=== PATIENT | male | born 1980 | race Caucasian/White ===

== ENCOUNTER 2017-12-09 05:22 | Emergency (ER) | payer MEDICAID, SELFPAY ==
[2017-12-09 05:24] VITALS: BP 156/106; PULSE 88; RESP 20; TEMP 36.6; O2SAT 96; BMI 34.7
--- NOTE | 2017-12-09 05:25 | NURSING ---
CALLED FOR EKG PER RN REQUEST, NO OLD EKG'S IN MUSE
--- NOTE | 2017-12-09 05:36 | RAD_ITS ---
STUDY: X-RAY CHEST REASON FOR EXAM: Male, 37 years old. Left-sided chest pain TECHNIQUE: Single frontal view of the chest. COMPARISON: 10/05/2015 FINDINGS: The lungs are clear and expanded. There is no demonstrated pleural abnormality. Normal size heart. Normal mediastinum and selena. Normal visualized pulmonary arteries. Normal visualized aortic arch and descending thoracic aorta. Normal visualized thoracic spine. Normal visualized ribs, clavicles, and shoulders. There is no demonstrated abnormality of the visualized soft tissue structures of the upper abdomen. RAD/Chest 1 View (Portable) IMPRESSION: Normal x-ray examination of the chest. Electronically Signed: Chuck Hale MD at 5:59 EDT Tel , Service support ,
--- NOTE | 2017-12-09 05:36 | EKG12_ITS ---
Test Reason : CP Blood Pressure : / mmHG Vent. Rate : 087 BPM Atrial Rate : 087 BPM P-R Int : 162 ms QRS Dur : 084 ms QT Int : 376 ms P-R-T Axes : 062 047 057 degrees QTc Int : 452 ms Normal sinus rhythm Normal ECG Confirmed by GENA JEAN BAPTISTE, TAN ([id number]), online editor AZRA RAMIREZ ([id number]) on 12/11/2017 8:54:18 AM Referred By: OMID Confirmed By:TAN AVERY MD
[2017-12-09 05:47] LABS: Absolute Lymphocyte Count 3.33 X10^3/ul (0.83-4.51); Absolute Neutrophil Count 4.7 X10^3/uL (2.0-7.7); Basophil# 0.04 X10^3/uL; Basophil% 0.4 % (0-1); Eosinophil# 0.63 X10^3/uL; Eosinophils% 6.6 % (0-5); Hematocrit 49.1 % (40-54); Lymphocyte # 3.33 X10^3/ul (4.0); Lymphocyte % 35.1 % (19-41); Mean Corp Hgb Conc 32.6 g/gl (32-36); Mean Corpuscular Volume 95.2 fL (80-94); Mean Platelet Vol. 9.6 fl (6.2-12.0); Monocyte# 0.74 X10^3/uL; Monocyte% 7.8 % (0-10); Neutrophil # 4.73 X10^3/uL (2.7-7.7); Platelet Count 306 K/mm3 (150-450); RBC Distribution Width CV 13.5 % (11.6-14.6); RBC Distribution Width SD 46.7 fl (35.1-43.9); Red Blood Count 5.16 M/mm3 (4.6-6.2); White Blood Count 9.5 K/mm3 (4.4-11.0)
[2017-12-09] MEDS: 0.9% Normal Saline 1,000 ML 1000 ML IV (05:50)
[2017-12-09 05:52] LABS: POSITIVE COUNT NO; POSITIVE DIFFERENTIAL NO; POSITIVE MORPHOLOGY NO
--- NOTE | 2017-12-09 06:04 | ED.DCSUM_ITS ---
- ER Visit Summary Date of Service: 12/09/17 Chief Complaint: Chest pain History of Present Illness: The patient is a 37 M with no primary care physician. He reports she has chest pain that began 4:00 this morning while undergoing light activity. It is a dull, aching pain that is 4 out of 10 at worst and 2 out of 10 currently. Is worsened by coughing. It is unchanged with exertion or breathing. Is relieved by nothing. He denies any associated nausea, vomiting, diaphoresis, or shortness of breath. No personal family history of DVT. No recent travel. No ankle swelling or calf pain. Physical Examination: Vitals: Stable. Afebrile. General: Well-nourished and well-developed. Head: Normocephalic atraumatic. Neck: Supple, no lymphadenopathy. No JVD. Nontender. Cardiovascular: Regular rate and rhythm. No murmurs. Respiratory: No respiratory distress. Clear to auscultation bilaterally. Abdominal: Soft, nontender, nondistended, normal bowel sounds. No guarding, rebound, or peritoneal signs. Back: Nontender. Extremities: Nontender, no edema. Skin: Normal color, no rash. Neurologic: Alert and oriented ?3. Cranial nerves II through XII are intact. Normal strength and sensation. Psych: Normal affect. Test Results: EKG is sinus at 87 with no acute changes. CBC is remarkable for eosinophils of 7. Chest x-ray is normal. Chem-7 is marked for chloride 108. Troponin is negative. D-dimer is negative. Emergency Department Course and Treatment: Patient is resting comfortably and refused pain medications. Treatment Plan: Patient will be discharged instructions to follow-up the [facility] in 1-2 days if not improving. Return to the emergency department for any worsening symptoms. Disposition: To home in improved and stable condition. Impression: 1. Atypical chest pain. 2. DILAN score of 0. This note was generated with [employer] dictation software. It may contain incorrect words, spelling, and punctuation that were not noted in review of the chart prior to signing ED Disposition - Plan for ED Patient: Chief Complaint: Chest Pain Instructions: ED Chest Pain Atypical Unkn Cause Referrals: Renee Fiore [NON-STAFF] - 1-2 Days if not improving
[2017-12-09 06:14] LABS: Anion Gap 6 (5-15); BUN 17 mg/dL (7-18); BUN/Creat Ratio 19.2 RATIO (10-20); Calcium,Total 8.5 mg/dL (8.5-10.1); Chloride 108 mmol/L (98-107); Creatinine, Serum 0.89 mg/dL (0.70-1.30); EST Glomerular Filtration Rate 102 mL/min (>60); Est Glom Filt Rate - Afr Amer 124 mL/min (>60); Estimated Creatinine Clearance 117.34 ml/min; Glucose 95 mg/dL (74-106); Potassium 4.3 mmol/L (3.5-5.1); Sodium Level 140 mmol/L (136-145)
[2017-12-09 06:39] LABS: D-Dimer Quantitative (DVT/PE) < 0.27 FEU/ug/m (0.27-0.49)
[2017-12-09 06:48] VITALS: BP 150/90; PULSE 69; RESP 17; O2SAT 97
== END 2017-12-09 06:53 | disposition home or self-care (01) ==
PROVIDERS: Emergency Provider Emergency Medicine
DX: R07.89 Other chest pain (principal); Z72.0 Tobacco use
CPT/HCPCS: 71045; 80048; 84484; 85025; 85379; 93005; 96360; 99284; A4216

== ENCOUNTER 2018-08-16 07:50 | Emergency (ER) | payer MEDICAID, SELFPAY ==
[2018-08-16 07:51] VITALS: BP 146/89; PULSE 81; RESP 18; TEMP 36.6; O2SAT 99; BMI 33.0
--- NOTE | 2018-08-16 08:04 | ED.VISSUMM ---
- ER Visit Summary Date of Service: 08/16/18 Chief Complaint: Elbow pain History of Present Illness: The patient is a 38 M who is right-hand dominant. He was arm wrestling yesterday after work and he felt something pop in the medial aspect of his right elbow. He complains of pain to that area as well as bruising and swelling. He can flex his elbow, but it hurts to extend. No other injuries or complaints. Physical Examination: Inspection shows some bruising to the proximal and medial forearm with some mild edema. No obvious deformity. Skin intact. Range of motion is intact, but he does have some pain with extension, pronation, and supination. Tender to palpation diffusely through the elbow, worse on the medial aspect. Compartments are soft. Pulses strong and equal distally. Sensation intact. Strength intact, but limited by pain. Test Results: X-rays of the right elbow were ordered. Emergency Department Course and Treatment: Patient treated with an ice pack. Declined pain medicine. Will check x-rays. X-rays show medial side spurring. No fracture. Suspect a muscle strain or partial tear. Nothing to suggest fracture, compartment syndrome, or vascular injury. Patient will be treated with gentle range of motion exercises at home, rest, anti-inflammatories, ice. He was referred to Dr. Nava for follow-up as he was next on the referral list and the patient does not have a PCP. Treatment Plan: As above Disposition: Discharge Impression: 1. Right elbow strain This note was generated with [employer] dictation software. It may contain incorrect words, spelling, and punctuation that were not noted in review of the chart prior to signing ED Disposition - Plan for ED Patient: Chief Complaint: Upper Extremity Injury Referrals: Care Physician,No Primary [Primary Care Provider] -
--- NOTE | 2018-08-16 08:30 | RAD_ITS ---
STUDY: X-RAY - RIGHT ELBOW REASON FOR EXAM: Male, 38 years old. Trauma. TECHNIQUE: 3 view(s) of the elbow. COMPARISON: None. FINDINGS: Normal visualized radius and ulna. There is medial epicondylar spurring. Normal radiocapitellar and ulnotrochlear articulations. The soft tissue structures are unremarkable. There is no demonstrated fracture. RAD/Elbow min 3 Views IMPRESSION: Medial epicondylar spurring. Electronically Signed: Mason Blanco MD at 9:01 EST , Service support ,
--- NOTE | 2018-08-16 09:09 | ED.DEP ---
ED Disposition - Plan for ED Patient: Chief Complaint: Upper Extremity Injury Instructions: ED Sprain Elbow Prescriptions: Naproxen [Naprosyn] 500 mg PO BID PRN #20 tab Referrals: Narinder Nava DO [STAFF PHYSICIAN] -
[2018-08-16] MEDS: Naproxen 500 MG Tablet PO (09:24)
[2018-08-16 09:25] VITALS: BP 135/78; PULSE 82; RESP 16; O2SAT 98
== END 2018-08-16 09:26 | disposition home or self-care (01) ==
PROVIDERS: Emergency Provider Emergency Medicine
DX: S56.911A Strain of unspecified muscles, fascia and tendons at forearm level, right arm, initial encounter (principal); Y93.72 Activity, wrestling; Y93.89 Activity, other specified; Y92.89 Other specified places as the place of occurrence of the external cause; Y99.8 Other external cause status
CPT/HCPCS: 73080; 99283

== ENCOUNTER 2019-11-04 08:45 | Emergency (ER) | payer MEDICAID, SELFPAY ==
[2019-11-04 08:46] VITALS: BP 138/70; PULSE 93; RESP 17; TEMP 36.5; O2SAT 93; BMI 33.0
[2019-11-04 08:59] VITALS: O2SAT 98
[2019-11-04 09:11] VITALS: BP 154/95; PULSE 73; RESP 16; TEMP 36.5; O2SAT 93
--- NOTE | 2019-11-04 09:16 | ED.VIS.FLU ---
History of Present Illness Chief Complaint: Cough Informant: Patient Onset: Weeks Context: Gradual Onset Timing: Continuous Quality: Wheezing Worsened by: Coughing Relieved by: Nothing Associated Symptoms: Cough, White sputum, - - nasal congestion. Negative for: Ear pain, Rhinorrhea, Sore throat Chest Pain: None Narrative: Patient is a 39-year-old male with history of tobacco use presenting with persistent cough. Patient states he had a cough for the past 3 weeks. It is especially bad at night when he tries to lay down. Sometimes he coughs so hard that he will have some chest discomfort and a headache. He currently does not have the symptoms. He has some associated nasal congestion. He has been to urgent care twice this month for the complaints and decided come to the emergency room as his cough is persisted. He denies any associated shortness of breath or difficulty breathing. He denies any fever or chills. He denies any GI or symptoms. At 3 weeks ago he was put on a prednisone burst and 1 week ago he was put on a Z-Ruslan. He is also been taking Mucinex for symptomatic relief. Patient was prescribed an albuterol inhaler but he is only using it once a day. He does not feel like it is providing any significant relief. He is also use some [id number] medications including NyQuil he denies any other complaints at this time. Patient states he is concerned he might have pneumonia. Past Medical History - Allergies and Home Meds Allergies/Adverse Reactions: Allergies amoxicillin Adverse Reaction (Verified 11/04/19 08:46) Rash Primary Care Physician: Pilo Clayton DO [NON CLINICAL AFFILIATE] - Past Medical History: None Surgical History: noncontributory Smoking Status: Current every day smoker Alcohol: None Drugs: None Review of Systems General: Denies: Chills, Fever, Sweats ENT: Reports: - - nasal congestion . Denies: Bilateral ear pain, Rhinorrhea, Sore throat Cardiovascular: Denies: Chest pain, Palpitations Respiratory: Reports: Cough, Sputum. Denies: Dyspnea, Dyspnea on exertion Gastrointestinal: Denies: Abdominal pain, Nausea, Vomiting, Diarrhea, Melena, Hematochezia Genitourinary: Denies: Dysuria, Hematuria, Frequency Skin: Denies: Rash Neurological: Denies: Headache, Weakness, Numbness Physical Exam Vital Signs/Narrative: Vital Signs Temp Pulse Resp BP Pulse Ox 11/04/19 09:11 97.7 F L 73 16 154/95 H 93 11/04/19 08:46 97.7 F L 93 17 138/70 H 93 Inital Vital Signs reviewed: Yes General: Well nourished, Well developed Head: Normocephalic, Atraumatic Eyes: Perrl, EOMI ENT: Moist mucous membranes, No rhinorrhea, TM's clear Neck: Supple, Nontender, No JVD Cardiovascular: Regular rate, Regular rhythm, No murmurs Respiratory: Wheezing - bilateral . Negative for: Rhonchi, Diminished, Decreased Air Movement, Retractions, Chest tenderness Abdomen: Soft, Nontender, Nondistended, Normal bowel sounds Back: Nontender, Normal Inspection Extremities: Nontender, No edema Skin: Normal color, No rash Neurological: Alert, Oriented x3, Cranial nerves II-XII grossly intact, Normal Strength, Normal Sensation Psychological: Normal affect Diagnostic/Tx/Re-eval Chest X-Ray - ED: 2 View, Read by ED Physician, Read by Radiologist, No Acute Disease - Medical Decision Making She is evaluated for 3 weeks of cough. He has no other symptom such as fever, chest pain or shortness of breath. He notes he is starting to get some discomfort because of the amount of cough and is having especially at night. He has been to urgent care twice but still has lingering symptoms. Clinically patient has a viral bronchitis. Chest x-ray does not show any acute infiltrate, pneumothorax or other acute process. Patient is counseled that this could be from COVID -19 but as he is healthy with normal vital signs we will not test him emergently in the ER. He is counseled on isolation precautions. Patient will be treated symptomatically with a course of steroids as he does have some wheezing as well as Robitussin-AC for his cough. Patient is counseled on signs and symptoms requiring return to the emergency room. Patient verbalizes agreement and understand this plan. Patient discharged home in stable and improved condition. ED Disposition - Plan for ED Patient: Disposition: Home or Assisted Living Diagnosis: Bronchitis Instructions: Acute Bronchitis, ED REACTIVE AIRWAY DISEASE Adult Prescriptions: Prednisone [Deltasone] 40 mg PO DAILY #10 tab Transmission Status: Received by [facility] Guaifenesin/Codeine [Robitussin AC] 10 ml PO Q6H PRN PRN 3 Days #120 udc PRN Reason: Cough Transmission Status: Received by [facility] Referrals: Pilo Clayton DO [NON CLINICAL AFFILIATE] -
--- NOTE | 2019-11-04 09:20 | RAD_ITS ---
STUDY: X-RAY CHEST REASON FOR EXAM: Male, 39 years old. COUGH, CONGESTION X 3 WEEKS TECHNIQUE: PA and lateral views of the chest. COMPARISON: Comparison is made with prior study dated December 09, 2017. FINDINGS: The lungs are clear and expanded. There is no demonstrated pleural abnormality. Normal size heart. Normal mediastinum and selena. Normal visualized pulmonary arteries. Normal visualized aortic arch and descending thoracic aorta. Normal visualized thoracic spine. Normal visualized ribs, clavicles, and shoulders. There is no demonstrated abnormality of the visualized soft tissue structures of the upper abdomen. RAD/Chest PA and Lateral IMPRESSION: Normal x-ray examination of the chest. Electronically Signed: Jelani Grover, at 9:36 EDT , Service support ,
[2019-11-04 10:41] VITALS: BP 134/77; PULSE 72; RESP 16; O2SAT 98
== END 2019-11-04 10:41 | disposition home or self-care (01) ==
PROVIDERS: Emergency Provider Emergency Medicine
DX: J40 Bronchitis, not specified as acute or chronic (principal); F17.200 Nicotine dependence, unspecified, uncomplicated
CPT/HCPCS: 71046; 99282

== ENCOUNTER 2020-01-12 06:17 | Emergency (ER) | payer MEDICAID, SELFPAY ==
[2020-01-12 06:19] VITALS: BP 132/79; PULSE 92; RESP 18; TEMP 36.3; O2SAT 97; BMI 34.1
--- NOTE | 2020-01-12 06:24 | RAD_ITS ---
STUDY: X-RAY - RIGHT ELBOW REASON FOR EXAM: Male, 39 years old. injured throwing a baseball yesterday -- c/o pain rt medial elbow TECHNIQUE: 3 view(s) of the elbow. COMPARISON: None. FINDINGS: Normal visualized humerus, radius and ulna. Normal radiocapitellar articulation. There is degenerative arthrosis of the ulnotrochlear articulation.. The soft tissue structures are unremarkable. RAD/Elbow min 3 Views IMPRESSION: Degenerative arthrosis. No demonstrated fracture, dislocation, or destructive osseous lesion. Electronically Signed: Ned Cuevas MD at 6:57 EDT , Service support ,
--- NOTE | 2020-01-12 06:25 | ED.DCSUM_ITS ---
History of Present Illness Chief Complaint: Upper Extremity Injury Detail of Chief Complaint: Right elbow pain Informant: Patient Onset: Yesterday Current Severity: Moderate Maximum Severity: Moderate Narrative: Patient presents with right elbow pain. He was throwing a baseball yesterday when he felt a pop in his elbow. He points the medial side of the joint. He is right-hand dominant. In August 2018 patient injured the same area of his elbow while arm wrestling. He states he was placed in a wrap by sports medicine. Past Medical History - Allergies and Home Meds Allergies/Adverse Reactions: Allergies amoxicillin Adverse Reaction (Verified 01/12/20 06:18) Rash Primary Care Physician: Care Physician,No Primary [Primary Care Provider] - Prior records reviewed: Yes Past Medical History: None Surgical History: noncontributory Lives: With Family Smoking Status: Current every day smoker Review of Systems General: Denies: Chills, Fever Eyes: Denies: Visual changes - bilaterally ENT: Denies: Bilateral ear pain Cardiovascular: Denies: Chest pain Respiratory: Denies: Dyspnea, Cough Gastrointestinal: Denies: Abdominal pain, Nausea, Vomiting, Diarrhea Genitourinary: Denies: Dysuria Musculoskeletal: Reports: Extremity Pain Neurological: Denies: Parasthesia Hematologic: Denies: Easy bruising, Easy bleeding Allergy: Denies: Uticaria Physical Exam Vital Signs/Narrative: Vital Signs Temp Pulse Resp BP Pulse Ox 01/12/20 06:19 97.4 F L 92 18 132/79 H 97 Inital Vital Signs reviewed: Yes General: Well nourished, Well developed Head: Normocephalic ENT: Moist mucous membranes Neck: Supple Cardiovascular: Regular rate, Regular rhythm Respiratory: No distress, CTA bilaterally Abdomen: Soft, Nontender Extremities: - - Tender to palpation on the medial joint line of the right elbow. Patient does have limited extension secondary to pain. Strong distal pulses are noted with good sensation. No tenderness at the shoulder. Patient has minimal right elbow pain with pronation and supination. Skin: Normal color Neurological: Alert, Oriented x3 Psychological: Normal affect Diagnostic/Tx/Re-eval Impressions Elbow X-Ray 01/12/20 06:24 IMPRESSION: Degenerative arthrosis. No demonstrated fracture, dislocation, or destructive osseous lesion. Electronically Signed: Ned Cuevas MD at 6:57 EDT , Service support , 01/12/20 06:24 Elbow min 3 Views [RAD] Stat - Medical Decision Making Patient was given naproxen for pain. X-rays do not show acute fracture. I did advise him that this will not show a ligament or tendon tear. Patient is given an Sharath wrap and sling. He has seen Dr. Nava in the past for this and will be referred to him again. He is given a work note for today and restrictions for the rest of the week. ED Disposition - Plan for ED Patient: Disposition: Home or Assisted Living Diagnosis: Sprain of right elbow Instructions: ED ELBOW SPRAIN Prescriptions: Naproxen [Naprosyn] 500 mg PO BID PRN PRN #20 tab PRN Reason: Pain Score 4-10/10 Transmission Status: Pending to [facility] Referrals: Narinder Nava DO [STAFF PHYSICIAN] - 3-5 Days if not improving
[2020-01-12] MEDS: Naproxen 500 MG Tablet PO (06:26)
== END 2020-01-12 07:21 | disposition home or self-care (01) ==
LOC: ED 07:15
PROVIDERS: Emergency Provider Emergency Medicine
DX: S53.401A Unspecified sprain of right elbow, initial encounter (principal); F17.200 Nicotine dependence, unspecified, uncomplicated; Y93.64 Activity, baseball
CPT/HCPCS: 73080; 99283

== ENCOUNTER 2020-03-17 06:55 | Emergency (ER) | payer MEDICAID, SELFPAY ==
[2020-03-17 06:56] VITALS: BP 155/83; PULSE 92; RESP 18; TEMP 36.9; O2SAT 97; BMI 32.6
--- NOTE | 2020-03-17 07:06 | RAD_ITS ---
STUDY: X-RAY - RIGHT ELBOW REASON FOR EXAM: Male, 40 years old. PAIN AFTER THROWING A BASEBALL -- H/O PREVIOUS ELBOW INJURIES TECHNIQUE: 3 view(s) of the elbow. COMPARISON: Comparison is made with prior study dated 01/12/2020. FINDINGS: There now is evidence of an avulsion fracture of the medial epicondyles of the distal humerus. Normal radiocapitellar and ulnotrochlear articulations. Soft tissue swelling. RAD/Elbow min 3 Views IMPRESSION: Avulsion fracture of the medial epicondyle of the distal humerus. Electronically Signed: Jelani Grover, at 7:28 EDT , Service support ,
--- NOTE | 2020-03-17 07:08 | ED.DCSUM_ITS ---
History of Present Illness Chief Complaint: Upper Extremity Injury Narrative: Patient presenting for evaluation due to a right elbow injury. Patient reports that he has had history of injuries to his right elbow in the past. 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 He reports a moderate amount of pain that is worse with palpation and movement. Patient denies any numbness or weakness. Patient reports that he has not been taking anything for this. He has not seen an orthopedist for this. He denies any other injuries at this time. Past Medical History - Allergies and Home Meds Allergies/Adverse Reactions: Allergies amoxicillin Adverse Reaction (Verified 03/17/20 07:00) Rash Primary Care Physician: Care Physician,No Primary [Primary Care Provider] - Past Medical History: None Surgical History: noncontributory Lives: With Family Smoking Status: Current every day smoker Drugs: None Review of Systems General: Denies: Fever Gastrointestinal: Denies: Nausea, Vomiting Musculoskeletal: Reports: Extremity Pain Skin: Denies: Rash Neurological: Denies: Weakness, Parasthesia Hematologic: Denies: Easy bruising, Easy bleeding Physical Exam Vital Signs/Narrative: Vital Signs Temp Pulse Resp BP Pulse Ox 03/17/20 06:56 98.5 F 92 18 155/83 H 97 Inital Vital Signs reviewed: Yes Right Elbow: - - Examination the patient's right upper extremity shows no pain or limited range of motion of the shoulder wrist or hand. 2+ radial pulses that are bilaterally symmetric. Normal sensation over all dermatomes. Examination of the elbow shows no outward signs of swelling or deformity. Normal active and passive range of motion, but there is pain with range of motion both with f lexion and extension pronation and supination. Pain on palpation mainly over the distribution of the medial condyle. General: Well nourished, Well developed Head: Normocephalic Eyes: EOMI ENT: No Trauma Neck: Full ROM Cardiovascular: Regular rate, Regular rhythm Respiratory: No distress Skin: Normal color, No rash Neurological: Alert, Oriented x3 Psychological: Normal affect Diagnostic/Tx/Re-eval Clinical Impression(s) from Imaging Studies Elbow X-Ray 03/17/20 07:06 IMPRESSION: Avulsion fracture of the medial epicondyle of the distal humerus. Electronically Signed: Jelani Grover, at 7:28 EDT , Service support , - Medical Decision Making Patient presented with an elbow injury. X-rays by my personal interpretation as well as radiology demonstrate a medial epicondyle avulsion fracture. Patient was placed in a fabricated long-arm posterior slab splint by the ED physician with good capillary refill following splint placement. He will be referred to orthopedics. Procedures - Upper Extremity Splints Upper Extremity Splint: Orthoglass, Long arm Splint Fabrication: Fabricated Location: Right ED Disposition - Plan for ED Patient: Disposition: Home or Assisted Living Diagnosis: Avulsion fracture of medial epicondyle of humerus Instructions: ED FRACTURE Elbow Referrals: Reid Cervantes DO [STAFF PHYSICIAN] - 3-5 Days
== END 2020-03-17 08:05 | disposition home or self-care (01) ==
PROVIDERS: Emergency Provider Emergency Medicine
DX: S42.441A Displaced fracture (avulsion) of medial epicondyle of right humerus, initial encounter for closed fracture (principal); F17.200 Nicotine dependence, unspecified, uncomplicated; Y93.64 Activity, baseball
CPT/HCPCS: 29105; 73080; 99283

== ENCOUNTER 2020-11-15 10:32 | Emergency (ER) | payer MEDICAID, SELFPAY ==
[2020-11-15 10:33] VITALS: BP 162/107; PULSE 84; RESP 16; TEMP 36.3; O2SAT 97; BMI 34.4
--- NOTE | 2020-11-15 11:01 | ED.DCSUM_ITS ---
- ER Visit Summary Date of Service: 11/15/20 Chief Complaint: Middle finger laceration History of Present Illness: The patient is a 40 M who presents with laceration to his left middle finger that occurred today approximately 1-1/2 to 2 hours prior to arrival. Patient states he was washing dishes. Patient states he thinks there might have been a steak knife in the dishwater. Patient states that when he let his hand in the sink he was cut with a knife. Patient states the knife went into the radial aspect of the distal phalanx of the left middle finger and came out the dorsal surface. Patient describes his pain as dull. Patient is unsure of his last tetanus. Patient states his pain improves whe never he elevates his hand. Patient denies any paresthesias or weakness. Patient denies any other injuries. Physical Examination: Vital signs are stable. Patient is afebrile. Patient is in no acute distress. Musculoskeletal exam reveals a 2 cm full-thickness linear laceration over the radial aspect of the distal phalanx of the left middle finger. There is moderate gapping of the wound margins. There is mild bleeding. There are no foreign bodies. There is also a 1 cm full-thickness linear laceration of the dorsal aspect of the distal phalanx of the left middle finger. There is mild gapping. There is no bleeding. There are no foreign bodies noted. Strength is 5/5 in extension and flexion of the PIP, DIP, and MP joints of the left middle finger. Sensation was intact to light touch in all digits. Capillary refill was less than 2 seconds in all digits. Test Results: X-rays of the left middle finger were obtained. There are 3 views. On my interpretation, there is no acute fracture. There is no foreign body. There is no soft tissue swelling. Radiologist also interpreted the x-ray and agrees. Emergency Department Course and Treatment: Patient was given a dose of clindamycin here. Patient was given a tetanus booster. The wounds were cleaned and irrigated with copious amounts of normal saline. The left middle finger was anesthetized with 1% plain lidocaine via digital block. The wound on the radial aspect of the distal phalanx was closed with 3 simple interrupted #4-0 nylon sutures under sterile technique. The wound on the dorsal aspect of the distal phalanx was closed with 2 simple interrupted #4-0 nylon sutures under sterile technique. Patient tolerated the procedure well. Bacitracin dressing was applied. Patient was given a prescription for clindamycin. Patient was instructed to keep the wounds clean and dry. Patient was instructed to follow- up with a primary care physician in 5 to 7 days. Patient was given a referral for primary care physician personalized living manager. Patient understood and was agreeable with the plan. All questions were answered. Disposition: Discharge home Impression: 1. Left middle finger laceration This note was generated with [employer] dictation software. It may contain incorrect words, spelling, and punctuation that were not noted in review of the chart prior to signing ED Disposition - Plan for ED Patient: Disposition: Home or Assisted Living Diagnosis: Laceration of left middle finger w/o foreign body w/o damage to nail Instructions: ED Laceration, Hand: All Closures Prescriptions: Clindamycin HCl [Cleocin] 300 mg PO Q6H #40 capsule Transmission Status: Received by [facility] Referrals: Pilo Clayton DO [NON CLINICAL AFFILIATE] - 7 Days for suture removal
--- NOTE | 2020-11-15 11:15 | RAD_ITS ---
STUDY: X-RAY - LEFT HAND, ATTENTION PAIN FINGER REASON FOR EXAM: Male, 40 years old. Injury/Pain TECHNIQUE: 3 view(s) of the finger were obtained. COMPARISON: None. FINDINGS: Normal metacarpal head. Normal metacarpophalangeal joint. Normal proximal phalanx. Normal middle phalanx. Normal distal phalanx. Normal proximal interphalangeal joint. Normal distal interphalangeal joint. RAD/Finger(s) Min 2 Views IMPRESSION: Normal x-ray examination of the finger. Electronically Signed: Jonnathan Phillips MD at 11:44 EDT , Service support ,
[2020-11-15] MEDS: Clindamycin HCl 150 MG Capsule 300 MG PO (11:34)
[2020-11-15] MEDS: Lidocaine 1% (20 ml mdv) 20 ML Vial INFILT (11:35)
[2020-11-15] MEDS: Diphth,Pertuss(Acell),Tet Vac 0.5 ML Vial IM (11:36)
== END 2020-11-15 12:01 | disposition home or self-care (01) ==
LOC: ED 11:54
PROVIDERS: Emergency Provider Emergency Medicine
DX: S61.213A Laceration without foreign body of left middle finger without damage to nail, initial encounter (principal); F17.200 Nicotine dependence, unspecified, uncomplicated; W26.0XXA Contact with knife, initial encounter; Y93.G1 Activity, food preparation and clean up
CPT/HCPCS: 12001; 73140; 90471; 90715; 99283

== ENCOUNTER 2021-02-08 00:40 | Emergency (ER) | payer MEDICAID, SELFPAY ==
[2021-02-08 00:41] VITALS: BP 130/86; PULSE 67; RESP 20; TEMP 36.6; O2SAT 100; BMI 34.3
--- NOTE | 2021-02-08 01:30 | EDS_ITS ---
HPI HPI - GI History of Present Illness Chief Complaint: Foreign Body Narrative Narrative: Stated he was eating some pulled pork and it stuck in his esophagus. It got stuck approximately 6-1/2 hours ago. He has had problems swallowing in the past but is never been evaluated. Is never had an endoscopy. Normally he can get food to go down. He is unable to pass water. He was able to handle his secretions as long as he does not drink. He has a foreign body sensation in his upper mid chest. No home treatment. PFSH PFSH Home Medications Albuterol Inhaler 2 puff INHALATION Q6H PRN PRN 11/04/19 [History Last Taken 11/03/19] naproxen 500 mg PO BID PRN PRN #20 tab 01/12/20 [Rx Last Taken Unknown] clindamycin HCl 300 mg PO Q6H #40 capsule 11/15/20 [Rx Last Taken Unknown] Allergy/AdvReac Type Severity Reaction Status Date / Time amoxicillin AdvReac Rash Verified 11/15/20 10:32 Social History Smoking Status: Current every day smoker tobacco type: e-cigarettes ROS ROS ED ROS Narrative ROS General: Denies fever, chills, sweats Eyes: Denies visual changes, blurred vision, double vision ENT: Denies ear pain, rhinorrhea, sore throat Cardiovascular: Denies palpitations, heart racing Respiratory: Denies dyspnea, cough, sputum, dyspnea on exertion, orthopnea,PND GI: Denies abdominal pain, nausea, vomiting, diarrhea, constipation, melena : Denies dysuria, hematuria, frequency Musculoskeletal: Denies myalgias, arthralgias, neck pain, back pain Skin: Denies rash, abscess, abrasions Neuro: Denies headache, weakness, paresthesia Psych: Denies depression, anxiety Endo: Denies polyuria, polydipsia, polyphagia Heme: Denies easy bruising, easy bleeding, lymphadenopathy Allergy: Denies hives, swelling EXAM Physical Exam Narrative Exam Narrative: Vital signs reviewed General: Well-nourished well-developed Head: Normocephalic atraumatic Eyes: Pupils equal round and reactive to light extraocular movements intact ENT: TMs clear no hemotympanum no trauma Neck: Nontender full range of motion Cardiovascular: Regular rate rhythm no murmurs normal S1-S2 Respiratory: No distress clear to auscultation bilaterally chest nontender Abdomen: Soft nontender nondistended normal bowel sounds no masses Back: Nontender no CVA tenderness Extremities: Nontender active range of motion ?4 extremities no trauma Skin: Normal color no trauma Neuro alert oriented cranial nerves II through XII intact normal strength sensation reflexes Const Vital Signs: 02/08/21 00:41 Temperature 97.8 F Temperature Source Oral Pulse Rate 67 Respiratory Rate 20 H Blood Pressure 130/86 H Blood Pressure Mean 100 Pulse Ox 100 Oxygen Delivery Method Room Air MDM MDM MDM Narrative Medical decision making narrative: IV established. Given dose of glucagon. Given water and a soda to try to get the food bolus the past that is lodged in his esophagus. Patient was able to have emesis and clear the pork. To follow- up as an outpatient. Given referral for possible outpatient endoscopy Discharge Plan Triage Chief Complaint: Foreign Body ED Provider: Jamil Sena Dx/Rx/DC Orders Clinical Impression: Esophageal foreign body Instructions: ED Swallowed Foreign Body (Adult) Prescriptions: No Action Albuterol Inhaler 2 puff inhalation Q6H PRN PRN (Reason: Wheezing) RF: 0 naproxen 500 MG tablet 500 mg PO BID PRN PRN (Reason: Pain Score 4-10/10) Qty: 20 RF: 0 clindamycin HCl 300 MG capsule 300 mg PO Q6H Qty: 40 RF: 0 Primary Care Provider: Care Physician,No Primary Referrals: Nikhil Duff MD [STAFF PHYSICIAN] - Care Physician,No Primary [Primary Care Provider] - Disposition Disposition: Home, Self Care
[2021-02-08 02:18] VITALS: BP 130/83; PULSE 68; RESP 16; O2SAT 98
== END 2021-02-08 02:15 | disposition home or self-care (01) ==
PROVIDERS: Emergency Provider Emergency Medicine
DX: T18.128A Food in esophagus causing other injury, initial encounter (principal); X58.XXXA Exposure to other specified factors, initial encounter
CPT/HCPCS: 99282; J1610

== ENCOUNTER 2025-06-15 16:35 | Emergency (ER) | payer MEDICAID, SELFPAY ==
[2025-06-15 16:35] VITALS: BP 161/93; PULSE 76; RESP 16; TEMP 37.1; O2SAT 100; BMI 33.3
--- NOTE | 2025-06-15 17:23 | EX.ED.DYSGE1 ---
HPI History of Present Illness Chief Complaint: Itching Informant: patient Onset/Context/Timing Onset: Days Context: Gradual Onset Quality: Pressure, burning Location: Right foot Worsened by: Walking Relieved by: Hydrocortisone cream Narrative Narrative: Patient presents with right foot redness that has been getting worse over the past few days. Patient states it is gradually getting worse. Patient describes it as pressure and burning. Patient states it is over the dorsum of his right foot. Patient states it is worse with walking. Patient states he has been using hydrocortisone cream with some relief. Patient denies any fevers or chills. Patient denies any discharge or drainage. [facility] Medical History no medical history no medical history Home Medications ?Medication ?Instructions ?Recorded ?Last Taken ?Type Albuterol Inhaler 2 puff inhalation Q6H PRN PRN 11/04/19 11/03/19 History Wheezing naproxen 500 mg tablet 500 mg PO BID PRN PRN Pain Score 01/12/20 Unknown Rx ##20 clindamycin HCl 300 mg capsule 300 mg PO Q6H #40 CAPSULES 11/15/20 Unknown Rx cephalexin 500 mg capsule 500 mg PO Q6 #40 CAPSULES 06/15/25 Unknown Rx Allergy/AdvReac Type Severity Reaction Status Date / Time amoxicillin Allergy Rash Verified 06/15/25 17:35 Surgical History no surgical history no surgical history Social History Smoking Status: Current every day smoker tobacco type: e-cigarettes ROS ROS ED Constitutional Constitutional ED: Denies chills or fever(s) Eyes Eyes: Denies blurry vision or change in vision ENT ENT ED: Denies rhinorrhea or sore throat Cardiovascular Cardiovascular: Denies chest pain or palpitations Respiratory/Chest Respiratory/Chest: Denies cough or dyspnea Gastrointestinal Gastrointestinal: Denies nausea or vomiting Genitourinary Genitourinary ED: Denies dysuria or hematuria Musculoskeletal Musculoskeletal: Reports back pain; Denies neck pain Integumentary Denies abscess or rash Neurologic Neurologic: Denies headache(s) or weakness Allergic/Immunologic Allergic/Immunologic ED: Denies mouth swelling or urticaria EXAM Physical Exam Const Vital Signs: 06/15/25 16:35 Temperature 98.7 F Temperature Source Oral Pulse Rate 76 Respiratory Rate 16 Blood Pressure 161/93 H Blood Pressure Mean 115 Pulse Ox 100 Oxygen Delivery Method Room Air Positive well nourished and well developed General Appearance ED: well developed and NAD HEENT Reports moist mucous membranes Neck supple and no JVD Extremity Extremity Narrative: There is erythema, induration, and warmth of the dorsal aspect of the right foot over the 2nd and 3rd distal metatarsals. There is some mild tenderness over this area. There is no fluctuance. There is no evidence of any abscess. There is good range of motion of all digits. Sensation was intact to light touch in all digits. Capillary refill was less than 2 seconds in all digits. General Extremety ED: Yes tenderness Neuro oriented x3, CN's II-XII intact bilaterally and no sensory deficits noted Sensorium / Orientation: alert Motor Exam: strength 5/5 throughout Psych mental status grossly normal MDM MDM MDM Narrative Medical decision making narrative: Differential diagnosis includes cellulitis, osteomyelitis, and wound infection. CBC will be obtained to assess for leukocytosis and anemia. Basic metabolic profile will be obtained to assess for electrolyte abnormality and renal function. X-rays of the right foot will be obtained to assess for osteomyelitis. Lab Data Attestation: I reviewed the patient's lab results. Lab results narrative: CBC was reviewed. There is a mild leukocytosis of 12.3. The remainder is within normal limits. Basic metabolic profile was reviewed and was essentially within normal limits. Labs: Laboratory Results - last 24 hr 06/15/25 17:46 WBC 12.3 H RBC 4.74 Hgb 15.1 Hct 44.8 MCV 94.5 H MCH 31.9 MCHC 33.7 RDW Std Deviation 44.9 H RDW Coeff of David 12.8 Plt Count 330 MPV 9.4 Immature Gran % (Auto) 0.300 Neut % (Auto) 60.5 Lymph % (Auto) 27.9 Teller % (Auto) 7.5 Eos % (Auto) 3.3 Baso % (Auto) 0.5 Absolute Neuts (auto) 7.5 Absolute Lymphs (auto) 3.44 Nucleated RBC % 0 Sodium 138 Potassium 3.9 Chloride 106 Carbon Dioxide 22.9 Anion Gap 9 BUN 18 Creatinine 0.87 Estim Creat Clear Calc 130.32 Est GFR (MDRD) Non-Af 109 BUN/Creatinine Ratio 21.0 H Glucose 89 Calcium 8.8 Radiography Diagnostic Testing: Clinical Impression(s) from Imaging Studies Foot X-Ray 06/15/25 17:33 IMPRESSION: No acute fracture or dislocation. Reading Location: [facility] X-rays of the right foot were obtained. There are 3 views. On my independent interpretation, there is no acute fracture. There is no evidence of osteomyelitis. Radiologist also interpreted the x-rays and agrees. Treatment and Re-Evaluation :: Patient was given a dose of Ancef. Patient was feeling better on reevaluation. Patient was advised of his findings. Patient was given a prescription for Keflex. Patient was instructed to follow-up with his primary care physician in 5 to 7 days. Patient was instructed to return if worse in any way. Patient understood and was agreeable with the plan. All questions were answered. Discharge Plan Triage Chief Complaint: Itching ED Provider: Norman Roblero Dx/Rx/DC Orders Clinical Impression: Cellulitis of foot, right, Nicotine vapor product user Instructions: ED Cellulitis Prescriptions: New cephalexin 500 mg capsule 500 mg PO Q6 Qty: 40 0RF No Action Albuterol Inhaler 2 puff inhalation Q6H PRN PRN (Reason: Wheezing) naproxen 500 MG tablet 500 mg PO BID PRN PRN (Reason: Pain Score 4-10/10) Qty: 20 0RF clindamycin HCl 300 MG capsule 300 mg PO Q6H Qty: 40 0RF Primary Care Provider: Care Physician,No Primary Referrals: Sophia Badillo MD [Med Staff - Accelerator Technician, Family Practice] - 5-7 Days Care Physician,No Primary [Primary Care Provider, Medical] Print Language: [place] Disposition Disposition: Home, Self Care
--- NOTE | 2025-06-15 17:33 | RAD_ITS ---
PROCEDURE: RIGHT FOOT MIN 3 VIEWS 06/15/2025 REASON FOR EXAM: INJURY/PAIN TECHNIQUE: Procedure Code: RADFO Modality: DX Procedure: FOOT MIN 3 VIEWS Laterality: Right COMPARISON: None. FINDINGS: No acute fracture or dislocation. Corticated osseous density adjacent to the 5th metatarsal base may be a prominent accessory ossicle or sequelae of remote injury. Alignment is anatomic. Small plantar calcaneal spur. Preserved joint spaces. Grossly unremarkable soft tissues. RAD/Foot min 3 Views IMPRESSION: No acute fracture or dislocation. Reading Location: [id number]
[2025-06-15 17:54] LABS: Hematocrit 44.8 % (40-54); Hemoglobin 15.1 g/dL (13.0-16.5); Immature Granulocytes Count 0.040 X10^3/uL (0.0-0.0); Mean Corp Hgb Conc 33.7 g/dL (32-36); Mean Corpuscular Volume 94.5 fL (80-94); Mean Platelet Vol. 9.4 fl (6.2-12.0); NRBC Flagged by Analyzer 0 % (0-5); Platelet Count 330 K/mm3 (150-450); RBC Distribution Width CV 12.8 % (11.6-14.6); RBC Distribution Width SD 44.9 fl (35.1-43.9); Red Blood Count 4.74 M/mm3 (4.6-6.2); White Blood Count 12.3 K/mm3 (4.4-11.0)
[2025-06-15] MEDS: Cefazolin 1 GM/50 ML BAG IV (18:00)
[2025-06-15 18:23] LABS: Anion Gap 9 (5-15); BUN 18 mg/dL (4-19); BUN/Creat Ratio 21.0 RATIO (10-20); Calcium,Total 8.8 mg/dL (7.6-11.0); Carbon Dioxide 22.9 mmol/L (21.0-32.0); Chloride 106 mmol/L (98-108); Estimated Creatinine Clearance 130.32 ml/min (50-250); Glucose 89 mg/dL (70-99); Potassium 3.9 mmol/L (3.3-5.1)
[2025-06-15 19:12] VITALS: BP 134/78; PULSE 64; RESP 18; TEMP 36.6; O2SAT 99
== END 2025-06-15 19:20 | disposition home or self-care (01) ==
PROVIDERS: Emergency Provider Emergency Medicine; Visit Provider Emergency Medicine
DX: L03.115 Cellulitis of right lower limb (principal); F17.290 Nicotine dependence, other tobacco product, uncomplicated
CPT/HCPCS: 73630; 80048; 85025; 96365; 99282